=== PATIENT | male | born 1980 | race Two or more races ===

== ENCOUNTER 2020-09-02 13:02 | Emergency (ER) | payer MEDICAID, OTHER ==
[~2020-09-02] VITALS: Ht 180.3 cm; Wt 87.1 kg
[2020-09-02] MEDS ORDERED: ACETAMINOPHEN 500 MG TAB PO ONE ×2 (13:45→14:04)
[2020-09-02] MEDS ORDERED: ONDANSETRON HCL 4 MG/2 ML VIAL IV ONE (14:00)
[2020-09-02] MEDS ORDERED: SODIUM CHLORIDE 0.9% 1,000 ML IV ONE (14:00)
[2020-09-02 14:46] LABS: Basophils # (auto) 0.1 10 ^3/uL (0-0.2); Basophils % (auto) 0.5 % (0.0-2.0); Eosinophils # (auto) 0.3 10 ^3/uL (0-0.8); Eosinophils % (auto) 2.6 % (0.0-7.0); Hematocrit 44.1 % (41.0-53.0); Hemoglobin 15.2 g/dL (13.5-17.5); Lymphocytes # (auto) 4.2 10 ^3/uL (0.4-5.4); Lymphocytes % (auto) 39.3 % (10.0-50.0); Mean Corpuscular Hemoglobin 32.3 pg (28.0-32.0); Mean Corpuscular Hgb Conc. 34.5 g/dL (32.0-36.0); Mean Corpuscular Volume 93.8 fL (80.0-100.0); Monocytes # (auto) 1.3 10 ^3/uL (0-1.3); Monocytes % (auto) 12.5 % (0.0-12.0); Neutrophils # (auto) 4.8 10 ^3/uL (1.6-8.6); Neutrophils % (auto) 45.1 % (37.0-80.0); Platelet Count (auto) 272 10^3/uL (140-450); White Blood Cell 10.6 10^3/uL (4.4-10.8)
[2020-09-02 14:50] VITALS: BP 145/86
[2020-09-02 14:57] LABS: BUN/Creatinine Ratio 17.4; Calcium 9.6 mg/dL (8.5-10.1)
== END 2020-09-02 16:42 | disposition home or self-care (01) ==
LOC: ER 13:02
DX: J20.9 Acute bronchitis, unspecified (principal); R11.2 Nausea with vomiting, unspecified; I10 Essential (primary) hypertension; F17.210 Nicotine dependence, cigarettes, uncomplicated; Z20.822 Contact with and (suspected) exposure to COVID-19
CPT/HCPCS: 36415; 71045; 80048; 82728; 85025; 87426; 96361; 96374; 99284; C9803; J2405; J7030; U0003

== ENCOUNTER 2025-01-24 09:45 | Emergency (ER) | payer MEDICAID ==
[~2025-01-24] VITALS: Ht 180.3 cm; Wt 75.1 kg
--- NOTE | 2025-01-24 10:33 | ED.PDOC ---
Back pain HPI HPI Comments 44y M who presents to the ED for chief complaint of back pain. Pt states he dove head first into pool on 01/23 and hit his head. Pt did not lose consciousness but states he has been having head and back pain since. Pt now in the ED, rates his upper back pain, 10/10, constant, exacerbated with movement and no relieving factors. Pt otherwise denies any other symptoms at this time. Chief Complaint: Back Pain Time Seen by MD: 10:31 Reviewed Notes: Medications, Allergies Allergies: Coded Allergies: Cephalexin (Verified Allergy, Unknown, 09/02/20) Information Source: Patient Mode of Arrival: Ambulatory Past Medical History PAST MEDICAL HISTORY: Depression, HTN, Liver Surgical History: Denies all surgeries Family History Family History: Reviewed,noncontributory to illness Social History Smoker: Cigarettes Alcohol: Denies ETOH Use Drugs: Denies Drug Use Lives In: Home Constitutional: denies: chills, diaphoresis, fatigue, fever, malaise, sweats, weakness, others EENTM: denies: blurred vision, double vision, ear bleeding, ear discharge, ear drainage, ear pain, ear ringing, eye pain, eye redness, hearing loss, mouth pain, mouth swelling, nasal discharge, nose bleeding, nose congestion, nose pain, photophobia, tearing, throat pain, throat swelling, voice changes, others Respiratory: denies: cough, hemoptysis, orthopnea, SOB at rest, shortness of breath, SOB with excertion, stridor, wheezing, others Cardiovascular: denies: chest pain, dizzy spells, diaphoresis, Dyspnea on exertion, edema, irregular heart beat, left arm pain, lightheadedness, palpitations, PND, syncope, others Gastrointestinal: denies: abdomen distended, abdominal pain, blood streaked bowels, constipated, diarrhea, dysphagia, difficulty swallowing, hematemesis, melena, nausea, poor appetite, poor fluid intake, rectal bleeding, rectal pain, vomiting, others Genitourinary: denies: burning, dysuria, flank pain, frequency, hematuria, incontinence, penile discharge, penile sore, pain, testicle pain, testicle swelling, urgency, others Neurological: denies: dizziness, fainting, headache, left sided numbness, left sided weakness, numbness, paresthesia, pre-existing deficit, right sided numbness, right sided weakness, seizure, speech problems, tingling, tremors, weakness, others Musculoskeletal: reports: back pain; denies: gout, joint pain, joint swelling, muscle pain, muscle stiffness, neck pain, others Integumetry: denies: bruises, change in color, change in hair/nails, dryness, laceration, lesions, lumps, rash, wounds, others Allergic/Immunocompromised: denies: Difficulty Healing, Frequent Infections, Hives, Itching, others Hematologic/Lymphatic: denies: anemia, blood clots, easy bleeding, easy bruising, swollen glands, others Endocrine: denies: excessive hunger, excessive sweating, excessive thirst, excessive urination, flushing, intolerance to cold, intolerance to heat, unexplained weight gain, unexplained weight loss, others Psychiatric: denies: anxiety, bipolar disorder, depression, hopeless, panic disorder, schizophrenia, sleepless, suicidal, others All Other Systems: Reviewed and Negative Physical Exam General Appearance: No Apparent Distress, Normal HEENT: Normal ENT Inspection, Pharynx Normal, TMs Normal Neck: Full Range of Motion, Non-Tender, Normal, Normal Inspection Respiratory: Chest Non-Tender, Lungs Clear, No Accessory Muscle Use, No Respiratory Distress, Normal Breath Sounds Cardiovascular: No Edema, No JVD, No Murmur, No Gallop, Normal Peripheral Pulses, Regular Rate/Rhythm Breast Exam: Deferred Gastrointestinal: No Organomegaly, Non Tender, No Pulsatile Mass, Normal Bowel Sounds, Soft Genitalia: Deferred Pelvic: Deferred Rectal: Deferred Extremities: No calf tenderness, Normal capillary refill, Normal inspection, Normal range of motion, Non-tender, No pedal edema Musculoskeletal : Location: Bilateral (diffused paraspinous tenderness) Apperance: Normal Neurologic: Alert, investigation clerk II-XII nml as Tested, No Motor Deficits, Normal Affect, Normal Mood, No Sensory Deficits Cerebellar Function: Normal Reflexes: Normal Skin: Dry, Normal Color, Warm Lymphatic: No Adenopathy Was a procedure done? Was a procedure done?: No Back Pain Differential Dx Differential Diagnosis: Fracture, Musculoskeletal Pain Other Differential Diagnosis muscle strain, muscle spasm X-Ray, Labs, Meds, VS Vital Signs Date Time Temp Pulse Resp B/P (MAP) Pulse Ox O2 Delivery O2 Flow Rate FiO2 01/24/25 11:50 77 18 99 Room Air 01/24/25 11:50 98.2 77 18 123/72 (89) 99 98.2 01/24/25 09:56 97.7 99 20 128/80 (96) 98 97.7 Current Medications Medications (Trade) Dose Ordered Sig/Ja Route Start Time Stop Time Status Last Admin Ketorolac Tromethamine (Toradol Injection) 30 mg ONCE ONCE IM 01/24/25 10:30 01/24/25 10:31 DC 01/24/25 12:38 Diazepam (Valium Tablet) 5 mg ONCE ONCE PO 01/24/25 10:30 01/24/25 10:31 DC 01/24/25 12:33 Time of 1ST Reevaluation: 11:00 Reevaluation 1ST: Unchanged Patient Education/Counseling: Diagnosis, Treatment, Prognosis, Need For Follow Up Family Education/Counseling: No Family Present Additional Information pt has several age indeterminate compression frx. he has no neurologic deficits. i will start him on valium and motrin Departure 1 Departure Time of Disposition: 12:50 Impression: Primary Impression: Compression fracture Disposition: HOME / SELF CARE / HOMELESS Condition: Good e-Prescriptions Cyclobenzaprine Hcl (Cyclobenzaprine Hcl) 10 Mg Tab 10 MG PO Q8HP PRN for 3 Days, #9 TAB Prov: XOCHITL VERDUZCO MD 01/24/25 Ibuprofen Micronized (MOTRIN TABLET) 600 Mg Tb 600 MG PO TID PRN, #40 TAB *Black box warning-NSAIDS can increase risk of [place] & hypertension, GI irritation, ulceration, bleed, perferation. Do not use post cardiac surgery. Use short duration/lowest effective dose. Prov: XOCHITL VERDUZCO MD 01/24/25 Discharged With: Self Critical Care Note Critical Care Time?: No Stability Stability form required: No Heart Score Heart Score: Heart Score Response (Comments) Value History N/A 0 EKG N/A 0 Age N/A 0 Risk Factors N/A 0 Troponin N/A 0 Total 0 I personally scribed for XOCHITL VERDUZCO MD ([email or web address]) on 01/24/25 at 10:33. Electronically submitted by Marybeth Shah ([email or web address]). XOCHITL VERDUZCO MD January 24, 2025 10:33
--- NOTE | 2025-01-24 12:12 | DVH ---
EXAM: XY LUMBAR SPINE 3 VIEW DATE OF SERVICE: 01/24/2025 10:28 AM ORDERING PHYSICIAN: XOCHITL VERDUZCO REASON FOR EXAM: INJURY TECHNIQUE: 3-view COMPARISON: None FINDINGS: Moderate compression fracture of T12. Mild compression fracture of L1. No subluxation. No lytic or blastic changes IMPRESSION: 1. Compression fractures at T12 and L1 End of Report
--- NOTE | 2025-01-24 12:17 | DVH ---
INDICATION: INJURY TECHNIQUE: views of the cervical spine were obtained. COMPARISON: None FINDINGS: The cervical spine is visualized from C1-C7. There is loss of the normal cervical lordosis which can be positional. No fractures or subluxations are identified. Mild degenerative changes of the spine. Alignment appears unremarkable. Prevertebral soft tissues are within normal limits. IMPRESSION: 1. No evidence for fracture or subluxation.
--- NOTE | 2025-01-24 12:17 | DVH ---
INDICATION: INJURY TECHNIQUE: 4 views of the thoracic spine were obtained. COMPARISON: None Findings/ IMPRESSION: No acute subluxation. Mild age indeterminate compression fracture of the T11 vertebral body.
[2025-01-24] MEDS: diazePAM 5 MG TAB PO ONE (12:33)
[2025-01-24] MEDS: KETOROLAC TROMETH 30 MG/ML 1ML VIAL IM ONE (12:38)
[2025-01-24] MEDS ORDERED: IBU600T PO (12:51)
[2025-01-24] MEDS ORDERED: CYCL-839 PO (12:51)
[2025-01-24 13:28] VITALS: BP 127/79; PULSE 82; RESP 18; TEMP 98.2; O2SAT 98
== END 2025-01-24 13:38 | disposition home or self-care (01) ==
LOC: ER 09:45
DX: S22.080A Wedge compression fracture of T11-T12 vertebra, initial encounter for closed fracture (principal); S32.010A Wedge compression fracture of first lumbar vertebra, initial encounter for closed fracture; F17.210 Nicotine dependence, cigarettes, uncomplicated; I10 Essential (primary) hypertension; F32.A Depression, unspecified; Z88.1 Allergy status to other antibiotic agents; X58.XXXA Exposure to other specified factors, initial encounter; Y93.89 Activity, other specified; Y92.89 Other specified places as the place of occurrence of the external cause; Y99.8 Other external cause status
CPT/HCPCS: 72040; 72070; 72100; 96372; 99284; J1885